=== PATIENT | female | born 2000 | race Caucasian/White ===

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

== ENCOUNTER 2023-09-10 00:29 | Emergency (ER) | payer OTHER ==
--- NOTE | 2023-09-10 01:43 | ED Physician Documentation ---
PD HPI ABD PAIN - Stated complaint Stated Complaint: POST OP PX - Chief complaint Chief Complaint: Abd Pain - History obtained from History obtained from: Patient - Additional information Additional information: HPI per patient. Patient underwent cholecystectomy last week at [facility] (patient says it was an outpatient/same day surgical center and not a hospital). Presents to ED at this time due to c/o gradually worsening generalized abdominal pain, most pronounced RUQ, associated with nausea and vomiting. She has not had adequate pain relief with OTC analgesics and has not taken any of the prescribed percocet due to h/o significant nausea/vomiting. Patient says she had made the prescribing practitioner aware of the n/v side effect (which is severe enough that she does not want to take any oxycodone/percocet) but it was prescribed anyway. She has been trying ondansetron for n/v without adequate improvement in n/v. Denies fever. Has not contacted the surgical group regarding tonight's symptoms because they started over the weekend Review of Systems Constitutional: denies: Fever, Chills, Sweats Cardiac: reports: Reviewed and negative Respiratory: reports: Reviewed and negative GI: reports: Abdominal Pain, Nausea, Vomiting. denies: Abdominal Swelling, Constipation, Diarrhea : denies: Dysuria, Frequency PD PAST MEDICAL HISTORY - Past Medical History Past Medical History: Yes Respiratory: Asthma GI: GERD Psych: Depression, Anxiety Musculoskeletal: None - Past Surgical History Past Surgical History: Yes General: Cholecystectomy HEENT: Tonsil/Adenoidectomy - Present Medications Home Medications: Ambulatory Orders Medication Instructions Recorded Confirmed hydrOXYzine HCL [Hydroxyzine HCl] 25 mg PO TID PRN 04/19/21 09/10/23 Buspirone HCl 10 mg PO BID 09/10/23 09/10/23 HYDROcod/ACETAM 5/325 [Ingalls 5/325] 1 - 2 tablet PO Q6H PRN #14 tablet 09/10/23 Norethindrone-E.estradiol-Iron 1 each PO DAILY 09/10/23 09/10/23 [June Fe 24 Tablet] Promethazine [Phenergan] 25 mg PO Q6H PRN #10 tab 09/10/23 lamoTRIgine [LaMICtal] 50 mg PO HS 09/10/23 09/10/23 - Allergies Allergies/Adverse Reactions: Allergies Allergy/AdvReac Type Severity Reaction Status Date / Time acetaminophen [From Percocet] AdvReac Nausea Verified 09/10/23 00:56 cephalexin AdvReac Nausea Verified 09/10/23 00:56 oxycodone [From Percocet] AdvReac Nausea Verified 09/10/23 00:56 - Social History Does the pt smoke?: No Smoking Status: Never smoker Does the pt drink ETOH?: No Does the pt have substance abuse?: Yes Substance Use and Type: Marijuana - Immunizations Immunizations are current?: Yes - POLST Patient has POLST: No PD ED PE NORMAL - Vitals Vital signs reviewed: Yes - General General: Alert and oriented X 3, No acute distress, Well developed/nourished - Cardiac Cardiac: RRR, No murmur - Respiratory Respiratory: No respiratory distress, Clear bilaterally - Abdomen Abdomen: Normal bowel sounds, Soft, Non distended PD ED PE EXPANDED - Abdomen Abdomen: Tender to palpation (diffuse TTP , most pronounced in RUQ. voluntary guarding but no rebound. the incision/trochar sites are all C/D/I without erythema or discharge) Results - Vitals Vitals: Oxygen O2 Source Room air - Labs Labs: Laboratory Tests 09/10/23 09/10/23 02:13 02:13 WBC 8.4 RBC 4.54 Hgb 13.4 Hct 40.0 MCV 88.1 MCH 29.5 MCHC 33.5 RDW 12.2 Plt Count 362 MPV 7.6 L Neut # (Auto) 6.2 Lymph # (Auto) 1.8 Bee # (Auto) 0.3 Eos # (Auto) 0.0 Baso # (Auto) 0.0 Absolute Nucleated RBC 0.00 Nucleated RBC % 0.0 Sodium 138 Potassium 4.1 Chloride 106 Carbon Dioxide 23 Anion Gap 9.0 BUN 9 Creatinine 0.6 Estimated GFR (MDRD) 127 Glucose 105 H Calcium 9.6 Total Bilirubin 0.6 AST 14 ALT 11 Alkaline Phosphatase 34 L Total Protein 7.2 Albumin 4.2 Globulin 3.0 Albumin/Globulin Ratio 1.4 Lipase 65 - Rads (name of study) CT A/P with IV contrast Relevant Findings:: Prelim report reviewed, See rad report PD Medical Decision Making - ED course Complexity details: reviewed results, re-evaluated patient, considered differential, d/w patient ED course: Normal CBC and ER abdominal panel except for insignificant/noncontributory findings of low alkaline phosphatase (o/w normal LFTs), low MPV (o/w entirely normal CBC). CT A/P has expected findings associated with the recent cholecystectomy. There is no evidence of hematoma nor biloma. The radiologist's interpretation includes questionable mild inflammatory changes s/o proctitis. No signs/symptoms to support this diagnosis (no pelvic/rectal pain, no diarrhea, blood in stool, pain with defecation). I suspect patient's symptoms are uncomplicated post-operative pain that is undertreated with OTC medications. Concern is raised that the pain is worsening several days after the surgery, but no concerning findings on tonight's workup. She is given dilaudid 1mg IV , 1 liter NS IV bolus, and 25mg IV phenergan. Patient reports good symptomatic relief with these interventions. She is given a second dose of 1mg IV dilaudid for residual pain, and provided take-home pack of vicodin. I am also e-prescribing vicodin and phenergan. Return precautions are carefully reviewed and she is instructed to contact her surgical group on Sunday to arrange for immediate follow-up appointment for reevaluation. Departure - Departure Disposition: Home, Self Care Clinical Impression: Postoperative abdominal pain Condition: Good Instructions: ED Post Op Pain Prescriptions: HYDROcod/ACETAM 5/325 [Ingalls 5/325] 1 - 2 tablet PO Q6H PRN #14 tablet PRN Reason: Pain Promethazine [Phenergan] 25 mg PO Q6H PRN #10 tab PRN Reason: Nausea / Vomiting Comments: There were no concerning nor diagnostic findings on tonight's blood tests. Additionally, the CT scan of your abdomen and pelvis did not have any diagnostic nor concerning findings. There is no evidence of an infection nor any other complications of your recent surgery. The radiologist does make note of mild/subtle abnormality of the rectum, which could be consistent with inflammation of the rectum (proctitis). However, your signs and symptoms do not correlate with this diagnosis and thus I think this is likely an incidental, unrelated finding that does not need any further immediate testing nor treatment. Certainly, if you develop signs or symptoms that are consistent with proctitis, you can always return to the emergency department; if these would be left lower quadrant abdominal pain, rectal pain particularly if it is worse with bowel movement, blood in the stool. You should also consider returning to the emergency department or else contacting your surgical group if you have worsening abdominal pain, any fever (100.4 or higher), vomiting or pain that does not respond to the prescribed medications. Even if your symptoms do not progress, I recommend that you contact your surgical group this morning when they open to let them know you had to come to the ER for abdominal pain and to inquire as to their recommendations for follow- up/reevaluation (they might recommend following up with them sooner than already scheduled) I have electronically submitted prescriptions for Phenergan (antinausea medication) and Vicodin (narcotic/opiate pain medication) to the [facility] pharmacy in [place]. I am prescribing a short course of narcotic pain medication for you. These are potentially dangerous and addictive medications that should be used carefully. These medications may constipate you. Take an mego-yor-keanpzy stool softener (docusate) twice daily with plenty of water while taking these medications. If you go 24 hours without a bowel movement, take [id number] miralax, per package instructions. Do not drink or drive while taking these medications. If you received narcotic or sedating medications while in the emergency department, do not drive for 24 hours. Store this medication in a safe, secure place and out of reach of children. It is a violation of federal law to give or sell this medication to another person or to use in a manner other than prescribed. The ED will not refill narcotic prescriptions, including prescriptions lost or stolen. To dispose of unwanted medications: 1. [facility] at [address] in [place] has a medication drop box. They accept prescription medications (in pill form) Sunday through Sunday 9:00 a.m. to 5:00 p.m. 2. The [facility] [employer] accepts prescription medications (in pill form only) for disposal year round. Call for more information. 3. Contact the [facility] for the next [facility] sponsored prescription drug collection event. , [phone], or [phone]; Discharge Date/Time: 09/10/23 04:30
[2023-09-10] MEDS: HYDROmorphone 1 MG/ML CARPUJECT IVP STA ×2 (02:07→04:00)
[2023-09-10] MEDS ORDERED: PROMETHAZINE 25 MG/1 ML VIAL ONE (02:11)
[2023-09-10] MEDS: PROMETHAZINE INJ 25 MG in SODIUM CHLORIDE 0.9% 50 ML IV STA (02:12)
[2023-09-10] MEDS: SODIUM CHLORIDE 0.9% 1,000 ML IV STA (02:13)
[2023-09-10 02:21] LABS: BASOPHILS % (AUTO) 0.4 %; EOSINOPHILS % (AUTO) 0.2 %; HGB - HEMOGLOBIN 13.4 g/dL (12.0-16.0); LYMPHOCYTES # (AUTO) 1.8 10^3/uL (1.5-3.5); LYMPHOCYTES % (AUTO) 21.4 %; MEAN CORPUSCULAR HEMOGLOBIN 29.5 pg (27.0-31.0); MEAN CORPUSCULAR HGB CONC 33.5 g/dL (32.0-36.0); MEAN CORPUSCULAR VOLUME 88.1 fL (81.0-99.0); MEAN PLATELET VOLUME 7.6 fL (7.9-10.8); MONOCYTES # (AUTO) 0.3 10^3/uL (0.0-1.0); MONOCYTES % (AUTO) 3.8 %; NEUTROPHILS # (AUTO) 6.2 10^3/uL (1.5-6.6); PLT - PLATELET COUNT 362 10^3/uL (130-450); RED BLOOD COUNT 4.54 10^6/uL (4.20-5.40); RED CELL DISTRIBUTION WIDTH 12.2 % (12.0-15.0); WHITE BLOOD COUNT 8.4 x10^3/uL (4.8-10.8)
[2023-09-10 02:36] LABS: ALBUMIN 4.2 g/dL (3.2-5.5); ALBUMIN/GLOBULIN RATIO 1.4 (1.0-2.2); BILIRUBIN,TOTAL 0.6 mg/dL (0.2-1.0); CALCIUM 9.6 mg/dL (8.5-10.3); CREATININE 0.6 mg/dL (0.6-1.3); POTASSIUM 4.1 mmol/L (3.5-4.5); TOTAL PROTEIN 7.2 g/dL (6.4-8.9)
[2023-09-10] MEDS ORDERED: iohexoL-300 100 ML VIAL ONE (02:42)
[2023-09-10] MEDS: iohexoL-300 100 ML VIAL IVP ONE (03:10)
[2023-09-10] MEDS: HYDROcod/ACET 5/325 Prepack 4 PO STA (04:00)
[2023-09-10 04:38] VITALS: BP 119/64; O2SAT 98
--- NOTE | 2023-09-10 07:53 | CT Report ---
PROCEDURE: Abdomen/Pelvis W INDICATIONS: abdominal pain, post-cholecystectomy CONTRAST: 100 ML OMNI 300 TECHNIQUE: After the administration of intravenous contrast, a CT scan of the abdomen and pelvis was performed. Images were recorded and evaluated at appropriate window settings. Reformats: coronal and sagittal. F or radiation dose reduction, the following was used: automated exposure control, adjustment of mA and /or kV according to patient size. COMPARISON: Ultrasound abdomen, 07/19/2021. FINDINGS: Image quality: Diagnostic. Lower chest: Unremarkable. Liver: No solid mass. Gallbladder and biliary tree: Gallbladder is surgically absent. No free fluid or fluid collections in the gallbladder fossa. Mild biliary prominence, likely secondary to post surgical change. Spleen: No splenomegaly. Pancreas: No pancreatic ductal dilation. Adrenals: No adrenal nodule. Kidneys and ureters: No hydronephrosis. No renal cystic lesion which requires follow up. No solid mas s. Stomach, bowel and peritoneum: No bowel distension. No pathologic free fluid. Mild distal colonic wal l thickening involving the sigmoid colon and rectum. Lymph nodes: No central or retroperitoneal adenopathy. Vessels: No infrarenal aortic aneurysm. PELVIS Reproductive organs: Unremarkable. Bladder: No abnormal wall thickening, accounting for underdistention. Pelvic lymph nodes: No pelvic adenopathy by size criteria. Bones: No aggressive osseous abnormality. Other: No significant ventral or inguinal hernia. IMPRESSION: 1. Cholecystectomy. No surgical complications visualized on CT. 2. Mild distal colonic and rectal wall thickening suggesting mild colitis. A differential diagnosis i s artifact from inadequate distention. No significant discrepancy with the preliminary interpretation. Reviewed by: Summer Luna MD on 09/10/2023 7:52 AM PDT Approved by: Summer Luna MD on 09/10/2023 7:52 AM PDT Station ID: [id number]
== END 2023-09-10 04:30 | disposition home or self-care (01) ==
LOC: ED 00:29
DX: G89.18 Other acute postprocedural pain (principal); R10.84 Generalized abdominal pain; R10.11 Right upper quadrant pain; Z79.899 Other long term (current) drug therapy; Z79.3 Long term (current) use of hormonal contraceptives
CPT/HCPCS: 36415; 74177; 80053; 83690; 85025; 96365; 96375; 96376; 99284; J1170; J7040; Q9967